=== PATIENT | female | born 1950 | race Caucasian/White ===

== ENCOUNTER 2020-03-12 13:55 | Inpatient (IN) | payer OTHER ==
[~2020-03-12] VITALS: Ht 165.1 cm; Wt 98.0 kg
[~2020-03-12 13:55] MED LIST: ATOR10TA9 PO; HYDR12.517 PO; LEVO100T PO; LISI30TA4 PO
[2020-03-12] MEDS ORDERED: FLUT16SP24 NAS (14:24)
--- NOTE | 2020-03-12 14:24 | NUR ---
Pt here for sudden onset of gi bleeding. Pt reports she has had 4 bm of bright red blood from rectum. Pt thought she was going to have diarrhea and it was all blood per patient. Pt reprots no pain and feeling well other than that. Pt resting in bed. Pt to have anoscopy.
[2020-03-12] MEDS ORDERED: SODIUM CHLORIDE 0.9% 1,000ML IVBOLUS ONE (14:30)
--- NOTE | 2020-03-12 14:34 | NUR ---
anoscopy set up completed.
[2020-03-12 15:10] LABS: BASOPHILS # (AUTO) 0.03 x10^3/uL (0-0.1); BASOPHILS % (AUTO) 0 % (0-1); EOSINOPHILS # (AUTO) 0.15 x10^3/uL (0-0.4); EOSINOPHILS % (AUTO) 2 % (1-7); LYMPHOCYTES # (AUTO) 1.21 x10^3/uL (1-3.4); LYMPHOCYTES % (AUTO) 14 % (22-44); MD NO; MEAN CORPUSCULAR HEMOGLOBIN 30.3 pg (27.0-34.8); MEAN CORPUSCULAR HGB CONC 32.9 g/dL (32.4-35.8); MEAN CORPUSCULAR VOLUME 92.1 fL (80-100); MEAN PLATELET VOLUME 7.2 fL (7.4-10.4); MONOCYTES # (AUTO) 0.69 x10^3/uL (0.2-0.8); MONOCYTES % (AUTO) 8 % (2-9); NEUTROPHILS # (AUTO) 6.72 x10^3/uL (1.8-6.8); NEUTROPHILS % (AUTO) 76 % (42-75); PLATELET COUNT 250 x10^3/uL (130-400); RED BLOOD COUNT 4.47 x10^6/uL (3.82-5.3); RED CELL DISTRIBUTION WIDTH 13.8 % (9.6-15.2)
--- NOTE | 2020-03-12 15:11 | NUR ---
Blaise anoscopy this rn assisted MARIBEL Cardenas and pt had moderate amounts of blood coming out and blood clots. Pt denies any trauma.
[2020-03-12 15:13] LABS: INTERNATIONAL NORMALIZED RATIO 0.96 (0.93-1.1); PROTHROMBIN TIME 10.2 Seconds (9.6-11.5)
[2020-03-12 15:16] LABS: ALANINE AMINOTRANSFERASE 21 U/L (12-78); ALBUMIN 3.2 g/dL (3.4-5.0); ANION GAP 9 mmol/L (5-15); CALCIUM 8.7 mg/dL (8.5-10.1); CHLORIDE 107 mmol/L (98-107); CREATININE 0.75 mg/dL (0.55-1.02)
[2020-03-12 15:18] LABS: ALKALINE PHOSPHATASE 95 U/L (45-117); BILIRUBIN,TOTAL 0.6 mg/dL (0.2-1.0); TOTAL PROTEIN 6.7 g/dL (6.4-8.2)
[2020-03-12] MEDS ORDERED: OMNIPAQUE 350 MG/ML, 100ML BOTTLE ONE (15:34)
[2020-03-12] MEDS ORDERED: PANTOPRAZOLE 80 MG in SODIUM CHLORIDE 0.9% 50 ML IV ONE (17:00)
[2020-03-12] MEDS ORDERED: SODIUM CHLORIDE FLUSH 10ML SYR IVF PRN (17:00)
--- NOTE | 2020-03-12 17:30 | NUR ---
Pt having 4 large bowel movement of pure blood with blood clots. Kai pads saturated in blood. MD Santana informed pts level of nursing is high and requiring close monitoring. second large bore piv placed.
--- NOTE | 2020-03-12 17:33 | NUR ---
Factor V Leiden mutation. Thrombophlebitis. Hypothyroidism. DVT - Deep Venous Thrombosis. Hypertension.
[2020-03-12] MEDS: PANTOPRAZOLE 80 MG in SODIUM CHLORIDE 0.9% 100 ML IV SCH (17:39)
[2020-03-12 17:57] LABS: BASOPHILS # (AUTO) 0.06 x10^3/uL (0-0.1); BASOPHILS % (AUTO) 1 % (0-1); EOSINOPHILS # (AUTO) 0.03 x10^3/uL (0-0.4); EOSINOPHILS % (AUTO) 0 % (1-7); LYMPHOCYTES # (AUTO) 1.05 x10^3/uL (1-3.4); LYMPHOCYTES % (AUTO) 12 % (22-44); MD NO; MEAN CORPUSCULAR HEMOGLOBIN 30.5 pg (27.0-34.8); MEAN CORPUSCULAR HGB CONC 33.5 g/dL (32.4-35.8); MEAN CORPUSCULAR VOLUME 90.9 fL (80-100); MEAN PLATELET VOLUME 7.2 fL (7.4-10.4); MONOCYTES # (AUTO) 0.56 x10^3/uL (0.2-0.8); MONOCYTES % (AUTO) 6 % (2-9); NEUTROPHILS # (AUTO) 7.35 x10^3/uL (1.8-6.8); NEUTROPHILS % (AUTO) 81 % (42-75); PLATELET COUNT 255 x10^3/uL (130-400); RED BLOOD COUNT 3.66 x10^6/uL (3.82-5.3); RED CELL DISTRIBUTION WIDTH 13.7 % (9.6-15.2)
--- NOTE | 2020-03-12 18:00 | NUR ---
Vebral Permission given to give information to Son and Daughter over medical care.
[2020-03-12] MEDS ORDERED: PANTOPRAZOLE 80 MG in SODIUM CHLORIDE 0.9% 100 ML IV SCH (18:30)
[2020-03-12] MEDS ORDERED: SODIUM CHLORIDE 0.9% 1,000 ML IV SCH (18:30)
[2020-03-12] MEDS: MOVIPREP POWDER 1 PREP KIT PO SCH (19:20)
--- NOTE | 2020-03-12 19:46 | NUR ---
Pt moved to ICU bed, Dr. ASHLEIGH cross for rectal tube to be placed. Pt had movi-prep started for colonoscopy in AM. Pt to be NPO at midnight. Pt tolerating PO bowel cleanse well. Pt also has purwick in place. Elise care provided for patient.
[2020-03-12] MEDS ORDERED: ONDANSETRON 2MG/ML, 2ML ONE (20:48)
[2020-03-12] MEDS: ONDANSETRON 2MG/ML, 2ML IV PRN (20:50)
--- NOTE | 2020-03-12 20:53 | NUR ---
Pt feeling more nauseas, zofran given, pt finished prep. Informed pt to not drink water until nausea resolves.
--- NOTE | 2020-03-12 20:53 | NUR ---
ELA DOMINGUEZ (DAUGHTER) [phone]
--- NOTE | 2020-03-12 21:43 | NUR ---
Pt had another large BM of pure bright red blood. Pt reports upset abdomen. Bowel prep completed. To Start second one in few hours.
--- NOTE | 2020-03-12 21:46 | NUR ---
Per simran DOMINGUEZ, pt to have ivf up to 150ml/hr
--- NOTE | 2020-03-12 22:45 | NUR ---
Labs drawn and given to Jaycee Fischer tech. Pt vss.
--- NOTE | 2020-03-12 23:19 | NUR ---
Pt had another large bm and moderate blood loss. At this time vss. Pt remains VSS.
--- NOTE | 2020-03-12 23:40 | NUR ---
Pt taken upstairs without issue. Pt tolerated well. Pts vss. Pt a/o x4 and lines verified at bedside with lolis vega. Pt in possession of belongings which all went with her upstairs.
--- NOTE | 2020-03-12 23:42 | NUR ---
Purewick cath dc prior to transfer due to saturated in blood.
[2020-03-13] MEDS: MOVIPREP POWDER 1 PREP KIT PO SCH (00:04)
[2020-03-13 00:07] VITALS: BP 133/78
[2020-03-13] MEDS: PANTOPRAZOLE 80 MG in SODIUM CHLORIDE 0.9% 100 ML IV SCH ×2 (01:21→19:46)
[2020-03-13 04:09] LABS: INTERNATIONAL NORMALIZED RATIO 1.01 (0.93-1.1); PROTHROMBIN TIME 10.7 Seconds (9.6-11.5)
[2020-03-13 04:10] VITALS: BP 120/65
[2020-03-13 04:12] LABS: ALANINE AMINOTRANSFERASE 17 U/L (12-78); ALBUMIN 2.6 g/dL (3.4-5.0); ANION GAP 7 mmol/L (5-15); CALCIUM 7.5 mg/dL (8.5-10.1); CHLORIDE 112 mmol/L (98-107); CREATININE 0.67 mg/dL (0.55-1.02)
[2020-03-13 04:14] LABS: ALKALINE PHOSPHATASE 70 U/L (45-117); BILIRUBIN,TOTAL 0.5 mg/dL (0.2-1.0); TOTAL PROTEIN 5.3 g/dL (6.4-8.2)
[2020-03-13] MEDS: LEVOTHYROXINE 100 MCG TABLET PO SCH (06:10)
[2020-03-13] MEDS ORDERED: CHLORHEXIDINE 15 ML UDC ONE (06:51)
[2020-03-13] MEDS ORDERED: FENTANYL PF 100 MCG/2ML ONE (08:23)
[2020-03-13] MEDS ORDERED: MIDAZOLAM 1 MG/ML, 5ML ONE (08:23)
[2020-03-13] MEDS: FLUTICASONE NASAL SPRAY 16GM NAS SCH (16:30)
[2020-03-13] MEDS ORDERED: SODIUM CHLORIDE 0.9% 1,000 ML IV SCH (18:30)
[2020-03-14 04:00] VITALS: BP 100/48
[2020-03-14 05:30] LABS: BASOPHILS # (AUTO) 0.06 x10^3/uL (0-0.1); BASOPHILS % (AUTO) 1 % (0-1); EOSINOPHILS # (AUTO) 0.19 x10^3/uL (0-0.4); EOSINOPHILS % (AUTO) 3 % (1-7); LYMPHOCYTES # (AUTO) 2.12 x10^3/uL (1-3.4); LYMPHOCYTES % (AUTO) 34 % (22-44); MD NO; MEAN CORPUSCULAR HEMOGLOBIN 30.2 pg (27.0-34.8); MEAN CORPUSCULAR HGB CONC 32.7 g/dL (32.4-35.8); MEAN CORPUSCULAR VOLUME 92.6 fL (80-100); MEAN PLATELET VOLUME 7.9 fL (7.4-10.4); MONOCYTES # (AUTO) 0.63 x10^3/uL (0.2-0.8); MONOCYTES % (AUTO) 10 % (2-9); NEUTROPHILS # (AUTO) 3.25 x10^3/uL (1.8-6.8); NEUTROPHILS % (AUTO) 52 % (42-75); PLATELET COUNT 213 x10^3/uL (130-400); RED BLOOD COUNT 2.84 x10^6/uL (3.82-5.3)
[2020-03-14] MEDS: LEVOTHYROXINE 100 MCG TABLET PO SCH (06:21)
[2020-03-14] MEDS ORDERED: OMNIPAQUE 350 MG/ML, 100ML BOTTLE ONE (06:59)
[2020-03-14] MEDS: SODIUM CHLORIDE 0.9% 1,000 ML IV SCH ×2 (08:19→16:00)
[2020-03-14] MEDS: PANTOPRAZOLE 80 MG in SODIUM CHLORIDE 0.9% 100 ML IV SCH ×2 (08:20→17:19)
[2020-03-14] MEDS: FLUTICASONE NASAL SPRAY 16GM NAS SCH (08:27)
[2020-03-14] MEDS: CEFTRIAXONE PMX 1GM/50ML 50 ML IV SCH (09:14)
[2020-03-14 16:14] VITALS: BP 129/46
[2020-03-14 16:31] VITALS: BP 134/44
[2020-03-14] MEDS ORDERED: GOLYTELY 4,000ML ORAL.SOL PO ONE (17:00)
[2020-03-14 18:27] VITALS: BP 146/64
[2020-03-14 19:30] VITALS: BP 147/52
[2020-03-14] MEDS: ONDANSETRON 2MG/ML, 2ML IV PRN (19:31)
[2020-03-15] MEDS: SODIUM CHLORIDE 0.9% 1,000 ML IV SCH (01:08)
[2020-03-15 02:20] LABS: ALANINE AMINOTRANSFERASE 14 U/L (12-78); ALBUMIN 2.2 g/dL (3.4-5.0); ANION GAP 7 mmol/L (5-15); CALCIUM 6.8 mg/dL (8.5-10.1); CHLORIDE 115 mmol/L (98-107)
[2020-03-15 02:23] LABS: ALKALINE PHOSPHATASE 52 U/L (45-117); BILIRUBIN,TOTAL 0.5 mg/dL (0.2-1.0); TOTAL PROTEIN 4.4 g/dL (6.4-8.2)
[2020-03-15 04:00] VITALS: BP 108/42
[2020-03-15] MEDS: PANTOPRAZOLE 80 MG in SODIUM CHLORIDE 0.9% 100 ML IV SCH (04:00)
[2020-03-15] MEDS ORDERED: OMEPRAZOLE 20 MG CAPSULE.DR PO SCH (06:00)
[2020-03-15] MEDS: LEVOTHYROXINE 100 MCG TABLET PO SCH (06:09)
[2020-03-15] MEDS ORDERED: POTASSIUM CHLORIDE 40 MEQ in SODIUM CHLORIDE 0.9% 500 ML IV ONE (07:00)
[2020-03-15] MEDS: CEFTRIAXONE PMX 1GM/50ML 50 ML IV SCH (08:43)
[2020-03-15] MEDS: PANTOPRAZOLE 40 MG IV IVPush SCH ×2 (08:44→19:25)
[2020-03-15] MEDS: FLUTICASONE NASAL SPRAY 16GM NAS SCH (09:30)
[2020-03-15] MEDS ORDERED: CHLORHEXIDINE 15 ML UDC ONE (11:13)
[2020-03-15] MEDS ORDERED: PROPOFOL 10 MG/ML, 20ML ONE ×2 (11:32→11:48)
[2020-03-15 18:55] VITALS: BP 118/71
[2020-03-15] MEDS ORDERED: ACETAMINOPHEN 325 MG TABLET PO PRN (20:00)
[2020-03-16] VITALS (8 sets, daily range): BP systolic 115–134; BP diastolic 70–83
[2020-03-16] MEDS: PANTOPRAZOLE 40 MG IV IVPush SCH (06:15)
[2020-03-16] MEDS: LEVOTHYROXINE 100 MCG TABLET PO SCH (06:15)
[2020-03-16 06:27] LABS: MEAN CORPUSCULAR HEMOGLOBIN 29.9 pg (27.0-34.8); MEAN CORPUSCULAR HGB CONC 33.2 g/dL (32.4-35.8); MEAN CORPUSCULAR VOLUME 90.1 fL (80-100); MEAN PLATELET VOLUME 6.8 fL (7.4-10.4); PLATELET COUNT 220 x10^3/uL (130-400); RED BLOOD COUNT 2.41 x10^6/uL (3.82-5.3); RED CELL DISTRIBUTION WIDTH 15.3 % (9.6-15.2)
[2020-03-16 07:37] LABS: BASOPHILS # (AUTO) 0.03 x10^3/uL (0-0.1); BASOPHILS % (AUTO) 1 % (0-1); EOSINOPHILS # (AUTO) 0.14 x10^3/uL (0-0.4); EOSINOPHILS % (AUTO) 3 % (1-7); LYMPHOCYTES # (AUTO) 1.26 x10^3/uL (1-3.4); LYMPHOCYTES % (AUTO) 24 % (22-44); MD SCAN; MONOCYTES # (AUTO) 0.58 x10^3/uL (0.2-0.8); MONOCYTES % (AUTO) 11 % (2-9); NEUTROPHILS # (AUTO) 3.24 x10^3/uL (1.8-6.8); NEUTROPHILS % (AUTO) 62 % (42-75)
[2020-03-16] MEDS: CEFTRIAXONE PMX 1GM/50ML 50 ML IV SCH (08:14)
[2020-03-16] MEDS: FLUTICASONE NASAL SPRAY 16GM NAS SCH (10:29)
== END 2020-03-16 18:57 | disposition home or self-care (01) | DRG 378 ==
LOC: ED 15:10 → EDIP 16:52 → CCU 20:07 → EDIP 20:07 → CCU 23:32 → 3N 03-15 14:04
PROVIDERS: ADMIT Hospitalist; ATTEND Internal Medicine
PROC: 0DJ08ZZ Inspection of Upper Intestinal Tract, Via Natural or Artificial Opening Endoscopic (ICD-10-PCS; 2020-03-13)
PROC: 0DJD8ZZ Inspection of Lower Intestinal Tract, Via Natural or Artificial Opening Endoscopic (ICD-10-PCS; principal; 2020-03-13 09:45)
PROC: 30233N1 Transfusion of Nonautologous Red Blood Cells into Peripheral Vein, Percutaneous Approach (ICD-10-PCS; 2020-03-14)
PROC: 0DJD8ZZ Inspection of Lower Intestinal Tract, Via Natural or Artificial Opening Endoscopic (ICD-10-PCS; 2020-03-15)
DX: K57.31 Diverticulosis of large intestine without perforation or abscess with bleeding (principal); D68.51 Activated protein C resistance; D62 Acute posthemorrhagic anemia; E78.5 Hyperlipidemia, unspecified; K44.9 Diaphragmatic hernia without obstruction or gangrene; J30.2 Other seasonal allergic rhinitis; I10 Essential (primary) hypertension; K64.8 Other hemorrhoids; E89.0 Postprocedural hypothyroidism; Z20.828 Contact with and (suspected) exposure to other viral communicable diseases; Z90.710 Acquired absence of both cervix and uterus; Z86.61 Personal history of infections of the central nervous system; Z87.891 Personal history of nicotine dependence; Z68.36 Body mass index [BMI] 36.0-36.9, adult; Z79.899 Other long term (current) drug therapy
CPT/HCPCS: 36415; 36430; 74174; 80053; 83036; 83605; 83690; 85014; 85018; 85025; 85610; 85730; 86850; 86900; 86923; 87081; 87635; 93005; 96360; 96361; 99152; 99153; 99285; G0378; J0696; J2250; J2405; J2704; J3010; J3480; Q9967; C9113; J7030; J7040; P9016